=== PATIENT | female | born 1975 | race Caucasian/White ===

== ENCOUNTER 2021-07-01 11:11 | Day surgery (SDC) | payer BC, SELFPAY ==
[2021-07-01 11:50] VITALS: BP 140/94; PULSE 81; RESP 18; TEMP 36.9; O2SAT 97; BMI 54.6
[2021-07-01] MEDS: Lactated Ringers 1,000 ML 30 ML IV (11:57)
[2021-07-01] MEDS: Lubricating Jelly 60 GM Tube 30 GM (13:30)
[2021-07-01 14:45] VITALS: BP 140/94; BP 144/84; PULSE 92; RESP 16; TEMP 36.3; O2SAT 96
--- NOTE | 2021-07-01 14:51 | PCM.DC ---
Discharge Instructions Diet Discharge Diet: No restrictions Activity Discharge Activity: Return to Normal Activity, May Not Drive (While on narcotics), May Shower and May Take a Tub Bath May resume sexual activity in: No Restrictions Dressing / Incision Call your doctor if you observe: Fever of 101 or Higher, Inability to urinate, Inability to have a bowel movement and Uncontrolled pain Follow Up Care Please Follow Up With: Norma Levy MD When: The office will call the patient for further scheduling Test Results: Test results from this visit will be discussed in further detail at your follow-up appointment, if applicable. Discharge Plan Admission Attending Provider: Norma Levy Discharge Orders/Prescriptions Prescriptions: New oxycodone-acetaminophen [oxycodone-acetaminophen] 1 TABLET tablet 2 tab PO Q8H PRN PRN (Reason: Pain) 7 Days Qty: 20 RF: 0 fluconazole [Diflucan] 150 MG tablet 150 mg PO DAILY 2 Days Qty: 2 RF: 0 phenazopyridine [Pyridium] 200 MG tablet 200 mg PO TID PRN PRN (Reason: Bladder Spasms) 7 Days Qty: 30 RF: 0 sulfamethoxazole-trimethoprim [sulfamethoxazole-trimethoprim] 1 TABLET tablet 1 tab PO BID 3 Days Qty: 6 RF: 0 Continued lisinopril-hydrochlorothiazide 20-12.5 mg tablet 1 tab PO DAILY RF: 0 meclizine 25 mg Tablet 25 mg PO DAILY PRN (Reason: Vertigo) RF: 0 kvfrrtetqzxi-Tf-vebm-minerals 18-0.4 mg Tablet 1 tab PO DAILY RF: 0 Referrals / Follow Up: [facility] [Other] Disposition Disposition (needs filled in before D/C Order can be placed): Home, Self Care
--- NOTE | 2021-07-01 14:55 | PCM.OPRPT ---
Problems Associated Problem List Diagnoses (1) Hydronephrosis: (2) Renal calculus, right: (3) Renal calculus, left: (4) Ureteral calculus, left: Report of Operation Date of Procedure: 07/01/21 Pre-Operative Diagnosis: Right renal calculus, left renal calculus, left ureteral calculus hydronephrosis bilaterally Post-Operative Diagnosis: Same Surgery/Procedure Performed:: Cystoscopy, right ureteral stent insertion, left ureteroscopy with holmium laser lithotripsy, stone basket extraction and left ureteral stent insertion Surgeon: Norma Levy Type of Anesthesia: General Specimen's removed: Stone fragments Description of Procedure: The patient is a 46-year-old female with a longstanding history of bilateral stones who presented to the office having been seen in the emergency room and having a CT scan revealing a right 1 cm renal pelvis calculus with hydronephrosis, a left mid ureteral stone 7 mm in size with hydronephrosis and a 9 mm lower pole left renal calculus. Informed consent was obtained and the patient agreed to proceed with surgical intervention. The patient was taken to the operating room and placed on the operating room table. Anesthesia monitored the head, neck, airway, IV access and vital signs throughout the case. Once anesthesia was appropriate ministered the patient was placed into dorsolithotomy position was prepped and draped in usual sterile fashion. The cystoscope was then inserted through the urethra under direct visualization into the urinary bladder. The bladder mucosa revealed no evidence of abnormality. The ureters were located in the correct anatomic position. The right ureteral orifice was intubated with a 0.035 Glidewire and a 6 Ukrainian 24 cm JJ stent was placed over the wire with curling in the renal pelvis as well as urinary bladder. The left ureteral orifice was also intubated with an 0.035 Glidewire, followed by a second to be used for a safety wire. The flexible ureteroscope was then inserted over the wire and reached the renal pelvis without difficulty. A 9 mm lower pole calculus was identified and pulled into the middle of the renal pelvis. The laser fiber was then used to break the stone into smaller pieces which were removed with a stone basket. After all stone fragments that were seen were removed, the ureter was directly visualized in its entirety and it became apparent that the ureteral stone was pulled into the urinary bladder. There were no further stones remaining in the left ureter. The safety wire then used with the cystoscope to place a 6 Ukrainian 24 cm JJ stent. There was good curling in the renal pelvis as well as the urinary bladder. The patient's bladder was then emptied and the case was terminated. The patient was awakened and taken to recovery room in good condition. There were no complications during this procedure. Grafts/Implants Used: 6 x 24 JJ stent bilaterally Complications none Admit VTE Documentation VTE Present on Admission: Yes VTE Mechan Device Prophylaxis: SCD's VTE Pharm Prophylaxis ordered?: No Reason prophylaxis not ordered:: Treatment Not Indicated
[2021-07-01 15:00] VITALS: BP 140/94; BP 142/77; PULSE 84; RESP 16; O2SAT 97
[2021-07-01 15:15] VITALS: BP 140/94; BP 142/93; PULSE 88; RESP 17; TEMP 36.3; O2SAT 98
[2021-07-01 16:45] VITALS: BP 140/94; BP 147/84; PULSE 88; RESP 18; O2SAT 100
[2021-07-08 09:15] LABS: Source LEFT KIDNEY
[2021-07-08 09:16] LABS: Size 4x3 mm
== END 2021-07-01 23:59 | disposition home or self-care (01) ==
LOC: SDC 11:18 → AC 11:21
PROVIDERS: Referring Provider Urology; Visit Provider Urology
PROC: 0TJ98ZZ Inspection of Ureter, Via Natural or Artificial Opening Endoscopic (ICD-10-PCS; CPT 52352; principal; 2021-07-01 12:50)
DX: N13.2 Hydronephrosis with renal and ureteral calculous obstruction (principal); E66.01 Morbid (severe) obesity due to excess calories; Z68.43 Body mass index [BMI] 50.0-59.9, adult; I10 Essential (primary) hypertension; Z79.899 Other long term (current) drug therapy; Z87.442 Personal history of urinary calculi
CPT/HCPCS: 52356; 00873; 76000; 82360; J7120; C2617; J2405

== ENCOUNTER 2021-08-03 08:06 | Day surgery (SDC) | payer BC, SELFPAY ==
[2021-08-02 16:31] LABS: Color, Urine Yellow (Yellow); Glucose, Dipstick Normal (Normal); Ketone-Dipstick Negative (Negative); Leukocyte Esterase-Dipstick 500 /ul (Negative); Nitrite-Dipstick Negative (Negative); Occult Blood-Urine 10 /ul (Negative); Protein-Dipstick 15 mg/dl (Negative); Specific Gravity, Urine 1.015 (1.002-1.030); Urine Bilirubin Dipstick Negative (Negative); Urine Clarity Sl. Cloudy (Clear); Urine Urobilinogen Normal (Normal)
--- NOTE | 2021-08-03 07:49 | HP.PCM_ITS ---
HPI - General HPI Narrative CARMEN GATICA, is a 46 F who presents for management of right renal calculus. Informed consent has been obtained. [facility] Medical History CPAP (continuous positive airway pressure) dependence Hydronephrosis Hypertension Morbid obesity Psoriasis Psoriatic arthritis Sleep apnea Wears glasses Home Medications lisinopril-hydrochlorothiazide 1 tab PO DAILY 06/30/21 [History Last Taken 06/30/21] meclizine 25 mg PO DAILY PRN 06/30/21 [History Last Taken 06/30/21] wnswuymwight-Ts-kvzj-minerals 1 tab PO DAILY 06/30/21 [History Last Taken 06/30/21] oxycodone-acetaminophen 2 tab PO Q8H PRN PRN 7 Days #20 tab 07/01/21 [Rx Last Taken Unknown] phenazopyridine [Pyridium] 200 mg PO TID PRN PRN 7 Days #30 tab 07/01/21 [Rx Last Taken Unknown] Allergy/AdvReac Type Severity Reaction Status Date / Time codeine Allergy Rash Verified 08/03/21 08:49 latex Allergy Rash Verified 08/03/21 08:49 Penicillins [PCN] Allergy Rash Verified 08/03/21 08:49 cephalexin [From Keflex] AdvReac Severe SEVERE Verified 08/03/21 08:49 YEAST INFECTION Surgical History History of repair of ACL Hx of carpal tunnel repair Hx of hysterectomy Hx of lithotripsy Social History Smoking Status: Never smoker ROS Constitutional Constitutional: Denies chills, fatigue, fever(s) or weakness Eyes Eyes: Denies change in vision ENT HEENT: Denies headache(s), hearing loss, nasal congestion or rhinorrhea Cardiovascular Cardiovascular: Denies chest pain, dyspnea or lightheadedness Respiratory/Chest Respiratory/Chest: Denies cough, dyspnea or inability to speak Gastrointestinal Gastrointestinal: Denies abdominal pain, nausea or vomiting Genitourinary Genitourinary: Reports flank pain, low back pain, urinary frequency and urinary urgency Musculoskeletal Musculoskeletal: Reports systems reviewed and no addt'l complaints, except as documented Integumentary Integumentary: Reports lesions; Denies new lesions Neurologic Neurologic: Reports systems reviewed and no addt'l complaints, except as documented Psychiatric Psychiatric: Reports systems reviewed and no addt'l complaints, except as documented Endocrine Endocrinology: Reports systems reviewed and no addt'l complaints, except as documented Hematologic/Lymphatic Hematologic/Lymphatic: Reports systems reviewed and no addt'l complaints, except as documented Allergic/Immunologic Allergic/Immunologic: Reports systems reviewed and no addt'l complaints, except as documented Physical Exam Const alert, oriented x3 and no apparent distress HEENT normocephalic, head/scalp atraumatic, external ears normal and external nose normal Eyes conjunctivae normal General Eye: normal appearance of both eyes Neck supple General: trachea midline Chest inspection of chest normal Chest: symmetrical chest wall rise Resp normal respiratory effort, normal air movement, no retractions and no use of accessory muscles Cardio regular rate and regular rhythm GI soft to palpation, non-tender and non-distended external exam normal Extremity normal to inspection Skin no rashes or lesions noted, no wounds, no jaundice, no petechiae and no mottling Neuro oriented x3, CN's II-XII intact bilaterally and moves all extremities Results Lab / Micro Data Labs: Laboratory Results - last 24 hr 08/02/21 14:24: Urine Color Yellow, Urine Clarity Sl. Cloudy, Urine pH 6.0, Ur Specific [place] 1.015, Urine Protein 15 H, Urine Glucose (UA) Normal, Urine Ketones Negative, Urine Occult Blood 10 H, Urine Nitrite Negative, Urine Bilirubin Negative, Urine Urobilinogen Normal, Ur Leukocyte Esterase 500 H Assessment & Plan Assessment/Plan (1) Renal calculus, right: (2) Hydronephrosis: PLAN: proceed with cystoscopy, left ureteral stent removal, right ureteroscopy with laser lithotripsy, basket extraction and right ureteral stent change informed consent obtained
[2021-08-03 08:50] VITALS: BP 132/90; PULSE 86; RESP 18; TEMP 36.8; O2SAT 98; BMI 55.3
[2021-08-03] MEDS: Lactated Ringers 1,000 ML 15 ML IV (08:50)
--- NOTE | 2021-08-03 09:15 | PCM.OPRPT ---
Problems Associated Problem List Diagnoses (1) Renal calculus, right: (2) Hydronephrosis: Report of Operation Date of Procedure: 08/03/21 Pre-Operative Diagnosis: right renal calculus Post-Operative Diagnosis: same Surgery/Procedure Performed:: cystoscopy, removal left ureteral stent, right ureteroscopy, laser lithotripsy, and right ureteral stent change Surgeon: Norma Levy Type of Anesthesia: General Description of Procedure: The patient is a 46-year-old female with bilateral renal stones, now status post management for her left side who presents for treatment for a right renal calculus. Informed consent has been obtained. The patient was taken to the operating room and placed on the operating room table. Anesthesia monitored the head, neck, airway, IV access and vital signs throughout the case. Once anesthesia was appropriate ministered the patient was placed into dorsal lithotomy position was prepped and draped in usual sterile fashion. A cystoscope was inserted through the urethra under direct visualization into the urinary bladder. The fluoroscopy was used to visualize the left side and no stone fragments were identified. The left ureteral stent was grasped with forceps and removed without difficulty. On the right side the stent was grasped and pulled to the urethral meatus at which point a wire 0.035 glide was inserted through the stent with curling in the renal pelvis seen on fluoroscopy. A second Glidewire was then passed without difficulty. A ureteral reaccessed sheath was then inserted under fluoroscopic visualization over a guidewire. The ureteroscope was then used to identify the 1 cm renal calculus. The laser fiber was used to break it into small pieces. The stone was very hard and was in the lower pole section of the kidney. After breaking it into small pieces a stone basket was attempted to be used for stone removal. This was difficult secondary to hemorrhage of the renal pelvis. Visualization became difficult and the procedure was aborted. The stone is in approximately 4 pieces in the renal pelvis. The ureteroscope was used to remove the ureteral reaccessed sheath under direct visualization and no injuries to the ureter were identified. There were no stone fragments within the ureter. The safety wire was used to place a 6 [place]ian 24 cm JJ stent with good curling visualized on fluoroscopic imaging of the right renal pelvis and directly seen within the urinary bladder. The patient's bladder was then emptied and the case was terminated. The patient was awakened and taken to the recovery room in good condition. There were no complications during this procedure. Grafts/Implants Used: 6x24 JJ stent Complications None Admit VTE Documentation VTE Present on Admission: Yes VTE Mechan Device Prophylaxis: SCD's VTE Pharm Prophylaxis ordered?: No
--- NOTE | 2021-08-03 09:17 | PCM.DC ---
Discharge Instructions Diet Discharge Diet: No restrictions Activity Discharge Activity: Return to Normal Activity Dressing / Incision Call your doctor if you observe: Fever of 101 or Higher, Inability to urinate and Inability to have a bowel movement Follow Up Care Please Follow Up With: Norma Levy MD When: call office for appt for next appt Test Results: Test results from this visit will be discussed in further detail at your follow-up appointment, if applicable. Discharge Plan Admission Attending Provider: Norma Levy Discharge Orders/Prescriptions Prescriptions: New fluconazole [Diflucan] 150 mg tablet 150 mg PO DAILY Qty: 2 RF: 0 Continued lisinopril-hydrochlorothiazide 20-12.5 mg tablet 1 tab PO DAILY RF: 0 meclizine 25 mg Tablet 25 mg PO DAILY PRN (Reason: Vertigo) RF: 0 ntrjsjpsuaaq-Cr-rhfo-minerals 18-0.4 mg Tablet 1 tab PO DAILY RF: 0 oxycodone-acetaminophen 1 TABLET tablet 2 tab PO Q8H PRN PRN (Reason: Pain) 7 Days Qty: 20 RF: 0 phenazopyridine [Pyridium] 200 MG tablet 200 mg PO TID PRN PRN (Reason: Bladder Spasms) 7 Days Qty: 30 RF: 3 Referrals / Follow Up: [facility] [Other] Disposition Disposition (needs filled in before D/C Order can be placed): Home, Self Care
[2021-08-03 10:45] VITALS: BP 132/90; BP 143/91; PULSE 94; RESP 16; TEMP 36.6; O2SAT 94
[2021-08-03 11:00] VITALS: BP 132/90; BP 142/94; PULSE 80; RESP 16; O2SAT 92
[2021-08-03 11:15] VITALS: BP 132/90; BP 154/91; PULSE 85; RESP 16; TEMP 36.6; O2SAT 96
[2021-08-03 12:06] VITALS: BP 132/90; BP 144/92; PULSE 84; RESP 16; TEMP 36.7; O2SAT 96
== END 2021-08-03 23:59 | disposition home or self-care (01) ==
LOC: SDC 08:08 → AC 08:08
PROVIDERS: Referring Provider Urology; Visit Provider Urology
PROC: 0TJ98ZZ Inspection of Ureter, Via Natural or Artificial Opening Endoscopic (ICD-10-PCS; CPT 52352; principal; 2021-08-03 09:30)
DX: N13.2 Hydronephrosis with renal and ureteral calculous obstruction (principal); I10 Essential (primary) hypertension; Z99.89 Dependence on other enabling machines and devices; G47.30 Sleep apnea, unspecified
CPT/HCPCS: 52356; 50385; 00918; 76000; 81002; 87426; J7120; C2617; J2405

== ENCOUNTER 2021-08-16 11:10 | Day surgery (SDC) | payer BC, SELFPAY ==
[2021-08-16] VITALS (7 sets, daily range): BP systolic 133–149; BP diastolic 88–108; PULSE 74–83; RESP 16–20; TEMP 36.3–36.9; O2SAT 94–98; BMI 55.4
--- NOTE | 2021-08-16 | CALC_PTH ---
PATIENT: CARMEN GATICA I LOC: [facility] [place] [facility] [place][id number] AGE/SX: 46/F ROOM: RE08/16/[address]: Dr. Norma Levy MD : 1975 BED: DIS: 08/16/2021 SPEC #: [id number] RECD: 08/17/21 10:54 STATUS: HEIKE FLORES #: [id number] NARENDRA: 08/16/21 00:[address]: Norma Levy DEPT: SURGICAL PATHOLOGY RECD BY: Moreno Grant Tissues: CALCULI Procedures: Surgery Specimen Level I HEADER OPERATION: Cysto, right ureteroscopy, laser lithotripsy, stone basket extraction PRE-OP DIAGNOSIS: Right renal calculus TISSUE SUBMITTED: Right renal calculus GROSS DIAGNOSIS A fragment of stone, clinically right renal calculus, submitted for analysis. OSCAR:sully 08/18/2021 COMMENT The calculus is submitted in its entirety for chemical stone analysis. The results from this study will be reported separately. GROSS DESCRIPTION Received without fixative labeled with the patient's name and designated right renal calculus. The specimen consists of a fragment of brownish-black stone covered with blood measuring 0.3 x 0.3 x 0.3 cm. The entire specimen is submitted for stone analysis. / OSCAR:sully 08/17/2021 CPT: 54063
--- NOTE | 2021-08-16 11:08 | PCM.HP.STD ---
HPI - General HPI Narrative CARMEN GATICA, is a 46 F who presents for a second attempt at removal of a right renal pelvic stone. Informed consent has been obtained. [facility] Medical History CPAP (continuous positive airway pressure) dependence Hydronephrosis Hypertension Morbid obesity Psoriasis Psoriatic arthritis Sleep apnea Wears glasses Home Medications lisinopril-hydrochlorothiazide 1 tab PO DAILY 06/30/21 [History Last Taken 06/30/21] meclizine 25 mg PO DAILY PRN 06/30/21 [History Last Taken 06/30/21] ckenyspqjrcz-Pr-kdaj-minerals 1 tab PO DAILY 06/30/21 [History Last Taken 06/30/21] oxycodone-acetaminophen 2 tab PO Q8H PRN PRN 7 Days #20 tab 07/01/21 [Rx Last Taken Unknown] fluconazole [Diflucan] 150 mg PO DAILY #2 tab 08/03/21 [Rx Last Taken Unknown] phenazopyridine [Pyridium] 200 mg PO TID PRN PRN 7 Days #30 tab 08/03/21 [Rx Last Taken Unknown] Allergy/AdvReac Type Severity Reaction Status Date / Time codeine Allergy Rash Verified 08/10/21 11:23 latex Allergy Rash Verified 08/10/21 11:23 Penicillins [PCN] Allergy Rash Verified 08/10/21 11:23 cephalexin [From Keflex] AdvReac Severe SEVERE Verified 08/10/21 11:23 YEAST INFECTION Surgical History History of repair of ACL Hx of carpal tunnel repair Hx of hysterectomy Hx of lithotripsy Social History Smoking Status: Never smoker ROS Constitutional Constitutional: Denies chills, fatigue or fever(s) Eyes Eyes: Denies change in vision ENT HEENT: Denies abnormal hearing, loss taste/smell, nose pain or sore throat Cardiovascular Cardiovascular: Denies chest pain, dyspnea, lightheadedness, nausea or vomiting Respiratory/Chest Respiratory/Chest: Denies change in mental status, cough or dyspnea Gastrointestinal Gastrointestinal: Denies nausea or vomiting Genitourinary Genitourinary: Reports other Details: There is right ureteral stent discomfort with intermittent gross hematuria. Musculoskeletal Musculoskeletal: Reports systems reviewed and no addt'l complaints, except as documented Integumentary Integumentary: Reports systems reviewed and no addt'l complaints, except as documented Neurologic Neurologic: Reports systems reviewed and no addt'l complaints, except as documented Psychiatric Psychiatric: Reports systems reviewed and no addt'l complaints, except as documented Endocrine Endocrinology: Reports systems reviewed and no addt'l complaints, except as documented Hematologic/Lymphatic Hematologic/Lymphatic: Reports systems reviewed and no addt'l complaints, except as documented Allergic/Immunologic Allergic/Immunologic: Reports systems reviewed and no addt'l complaints, except as documented Physical Exam Const alert, oriented x3 and no apparent distress General Appearance: cooperative, comfortable and well kempt HEENT normocephalic, head/scalp atraumatic and hearing grossly normal bilaterally Nose: external nose normal External Ear: external ears normal Mouth: lips normal Eyes conjunctivae normal and no scleral icterus General Eye: normal appearance of both eyes Neck supple General: trachea midline Lymph Lymphatic: no lymphedema noted Chest inspection of chest normal Chest: symmetrical chest wall rise Resp normal respiratory effort, normal air movement, no retractions and no use of accessory muscles Effort and Inspection: able to speak in complete sentences and symmetric chest movement Cardio regular rate and regular rhythm GI soft to palpation, non-tender and non-distended external exam normal Back/Spine no CVA tenderness Extremity normal to inspection Skin no rashes or lesions noted, no wounds, skin turgor normal, no jaundice, no petechiae and no mottling Neuro oriented x3, CN's II-XII intact bilaterally and moves all extremities Psych mental status grossly normal, thought process normal, cooperative and affect normal Assessment & Plan Assessment/Plan (1) Renal calculus, right: (2) Hydronephrosis: PLAN: Proceed with cystoscopy, right ureteroscopy, laser lithotripsy, stone basket extraction, right ureteral stent change Informed consent obtained
--- NOTE | 2021-08-16 11:12 | PCM.OPRPT ---
Problems Associated Problem List Diagnoses (1) Renal calculus, right: (2) Hydronephrosis: Report of Operation Date of Procedure: 08/16/21 Pre-Operative Diagnosis: Right renal calculus, hydronephrosis Post-Operative Diagnosis: Same Surgery/Procedure Performed:: Cystoscopy, right ureteroscopy, holmium laser lithotripsy, stone basket extraction, right ureteral stent change Surgeon: Norma Levy Type of Anesthesia: General Specimen's removed: Right renal calculus fragments Description of Procedure: The patient is a 46-year-old female status post laser lithotripsy of a right renal pelvis calculus. Secondary to bleeding, we were unable to remove the fragments of the stone at the time of the last procedure and she now presents for stone removal. Informed consent was obtained. The patient was taken to the operating room and placed on operating room table. Anesthesia monitored the head, neck, airway, IV access and vital signs throughout the case. Once anesthesia was apparently ministered, the patient was placed into dorsolithotomy position was prepped and draped in usual sterile fashion. The cystoscope was inserted through the urethra under direct visualization into the urinary bladder. The indwelling right ureteral stent was observed. A 0.035 Glidewire was inserted alongside the stent, and a second one was placed through the stent as it was removed with grasping forceps. A ureteral reaccess sheath was then inserted under fluoroscopic visualization over one of the Glidewire's. The flexible ureteroscope was then inserted through the access sheath into the renal pelvis where stones were identified, lasered into small pieces and then grasped with the basket and removed. The stones were very hard. The stone fragments were sent for analysis. At the conclusion of stone removal, the ureteral reaccess sheath was removed under direct visualization with the ureteroscope. No injuries were identified within the right ureter. At this time the remaining Glidewire was used to place a 6 x 24 JJ stent with good curling in the renal pelvis as well as urinary bladder. The patient's bladder was emptied and the case was terminated. Patient was taken to the recovery room in good condition. There were no complications during this procedure. Grafts/Implants Used: 6 x 24 JJ stent Complications None Admit VTE Documentation VTE Present on Admission: Yes VTE Mechan Device Prophylaxis: SCD's VTE Pharm Prophylaxis ordered?: No Reason prophylaxis not ordered:: Treatment Not Indicated
--- NOTE | 2021-08-16 11:16 | DCINST_ITS ---
Discharge Instructions Diet Discharge Diet: No restrictions Activity Discharge Activity: Return to Normal Activity Dressing / Incision Call your doctor if you observe: Fever of 101 or Higher, Inability to urinate and Inability to have a bowel movement Follow Up Care Please Follow Up With: Norma Levy MD When: In the office for stent removal, call for appointment Test Results: Test results from this visit will be discussed in further detail at your follow-up appointment, if applicable. Discharge Plan Admission Attending Provider: Norma Levy Discharge Orders/Prescriptions Prescriptions: Continued lisinopril-hydrochlorothiazide 20-12.5 mg tablet 1 tab PO DAILY RF: 0 meclizine 25 mg Tablet 25 mg PO DAILY PRN (Reason: Vertigo) RF: 0 cnzovzvsegbf-Vf-ufpc-minerals 18-0.4 mg Tablet 1 tab PO DAILY RF: 0 oxycodone-acetaminophen 1 TABLET tablet 2 tab PO Q8H PRN PRN (Reason: Pain) 7 Days Qty: 20 RF: 0 phenazopyridine [Pyridium] 200 MG tablet 200 mg PO TID PRN PRN (Reason: Bladder Spasms) 7 Days Qty: 30 RF: 3 fluconazole [Diflucan] 150 mg tablet 150 mg PO DAILY Qty: 2 RF: 0 Other Ambulatory Orders: COVID 19 AG RAPID (RN COLLECT) (Routine) Timeframe: [id number] Facility: [facility] - Location: Laboratory Ordered By: Dr. Aayush Wilson Referrals / Follow Up: [facility] [Other] Disposition Disposition (needs filled in before D/C Order can be placed): Home, Self Care
[2021-08-16] MEDS: Lactated Ringers 1,000 ML 15 ML IV (11:30)
[2021-08-24 14:45] LABS: Source RIGHT KIDNEY
== END 2021-08-16 23:59 | disposition home or self-care (01) ==
LOC: SDC 11:16 → AC 11:16
PROVIDERS: Referring Provider Urology; Visit Provider Urology
PROC: 0TJ98ZZ Inspection of Ureter, Via Natural or Artificial Opening Endoscopic (ICD-10-PCS; CPT 52352; principal; 2021-08-16 12:25)
DX: N13.2 Hydronephrosis with renal and ureteral calculous obstruction (principal); I10 Essential (primary) hypertension; G47.30 Sleep apnea, unspecified; Z99.89 Dependence on other enabling machines and devices
CPT/HCPCS: 52353; 50385; 00918; 76000; 82360; 87426; 88300; J7120; C2617; J2405